=== PATIENT | male | born 1945 | race Hispanic/Latino ===

== ENCOUNTER 2018-09-18 08:04 | Outpatient (CLI) | payer BC, MEDICARE ==
--- NOTE | 2018-09-18 09:08 | ULT ---
ABDOMINAL AORTIC ULTRASOUND: HISTORY: Abdominal aortic aneurysm screening. FINDINGS: Exam was somewhat limited because of gas. No evidence for an identifiable abdominal aortic aneurysm. The bifurcation region is unremarkable. Right and left iliac arteries show no evidence of aneurysm . IMPRESSION: Some atherosclerotic changes of the aorta, evidence for aortic vascular disease. No evidence for an aneurysm. POS: [facility]
== END 2018-09-18 08:05 | disposition home or self-care (01) ==
LOC: BICULT 08:04
PROVIDERS: ATTEND Family Medicine
DX: Z13.6 Encounter for screening for cardiovascular disorders (principal); Z00.00 Encounter for general adult medical examination without abnormal findings; I70.0 Atherosclerosis of aorta; I35.9 Nonrheumatic aortic valve disorder, unspecified
CPT/HCPCS: 76706

== ENCOUNTER 2022-12-18 07:45 | Emergency (ER) | payer OTHER, BC | END 2022-12-18 09:42 | disposition left against medical advice (07) | LOC: ERS 07:45 | DX: M54.9 Dorsalgia, unspecified (principal); Z87.891 Personal history of nicotine dependence; E11.9 Type 2 diabetes mellitus without complications; E78.00 Pure hypercholesterolemia, unspecified; Z79.84 Long term (current) use of oral hypoglycemic drugs; Z79.899 Other long term (current) drug therapy | CPT/HCPCS: 99283 ==

== ENCOUNTER 2025-02-17 07:45 | Outpatient (CLI) | payer BC, OTHER ==
[2025-02-17 09:24] LABS: #Basophils 0.05 10x3/uL (0.0-0.2); #Eosinophils 0.14 10x3/uL (0.0-0.7); #Monocytes 0.56 10x3/uL (0.11-0.59); #Neutrophils 3.75 10x3/uL (1.40-6.50); %Basophils 0.9 % (0.0-1.0); %Eosinophils 2.4 % (0.0-10.0); %Lymphocytes 22.7 % (21.0-51.0); %Monocytes 9.6 % (0.0-10.0); %Neutrophils 63.9 % (42.0-75.0); Hematocrit 46.6 % (42.0-52.0); Hemoglobin 15.7 g/dL (14.0-18.0); Mean Corpuscular Hemoglobin 31.0 pg (27.0-31.0); Mean Corpuscular Volume 91.9 fL (78.0-98.0); Platelet Count 172 10x3/uL (130-400); Red Blood Cell (RBC) Count 5.07 mill/uL (4.70-6.10); White Blood Cell (WBC) Count 5.86 10x3/uL (4.8-10.8)
[2025-02-17 09:42] LABS: Bacteria/HPF None Seen HPF (None Seen); Glucose, Urine (Dipstick) Normal (Negative); Leukocyte Negative Leu/uL (Negative); Protein, Urine (Dipstick) Negative (Neg-Trace); RBC/HPF 0-3 HPF (0-3); Specific Gravity, Urine 1.014 (1.002-1.036); WBC/HPF 0-3 HPF (0-3)
[2025-02-17 09:48] LABS: INR-International Normal Ratio 1.1; Prothrombin Time 13.8 sec (12.0-14.7)
[2025-02-17 09:57] LABS: Anion Gap 12 mmol/L (10-20); BUN (Urea Nitrogen) 16 mg/dL (8.4-25.7); Calc. Creatinine Clearance 0 mL/min (70-130); Calcium 8.9 mg/dL (7.8-10.44); Carbon Dioxide 24 mmol/L (23-31); Chloride 106 mmol/L (98-107); Glucose 95 mg/dL (83-110); Potassium 4.1 mmol/L (3.5-5.1); Sodium 138 mmol/L (136-145)
== END 2025-02-17 07:46 | disposition home or self-care (01) ==
LOC: LABBT 07:45
PROVIDERS: ATTEND Orthopaedic Surgery
DX: Z01.818 Encounter for other preprocedural examination (principal); M17.11 Unilateral primary osteoarthritis, right knee
CPT/HCPCS: 80048; 81001; 83036; 85025; 85610; 87081; 87086; 93005; 93010

== ENCOUNTER 2025-02-17 08:51 | Outpatient (CLI) | payer OTHER | END 2025-02-17 08:52 | disposition home or self-care (01) | LOC: CT 08:51 | PROVIDERS: ATTEND Orthopaedic Surgery | DX: Z01.818 Encounter for other preprocedural examination (principal); M17.11 Unilateral primary osteoarthritis, right knee ==

== ENCOUNTER 2025-02-24 05:51 | Observation (INO) | payer BC, OTHER ==
[2025-02-17 08:17] VITALS: BMI 28.0
[2025-02-24] MEDS ORDERED: PROPOFOL 20 ML ONE ×2 (06:28→08:01)
[2025-02-24] MEDS ORDERED: Lidocaine 1% PF 5 ML VIAL ONE (06:28)
[2025-02-24] MEDS ORDERED: Tranexamic Acid 1,000 MG/10 ML VIAL ONE (06:31)
[2025-02-24] MEDS ORDERED: Vancomycin HCl 1.5 GM VIAL ONE (06:31)
[2025-02-24] MEDS ORDERED: Ropivacaine 0.5% HCl/PF (150 MG/30 ML VIAL) ONE (06:43)
[2025-02-24] MEDS ORDERED: CEFAZOLIN 2 GM VIAL ONE (06:52)
[2025-02-24] MEDS ORDERED: HYDROcodone/Acetaminophen 10/325 mg Tablet PO PRN (07:15)
[2025-02-24] MEDS ORDERED: Ondansetron PF 4 MG/2 ML Vial IVP PRN ×2 (07:15→09:17)
[2025-02-24] MEDS ORDERED: Ropivacaine 0.2% 550 ML 550 ML NERVE BLCK SCH (07:15)
[2025-02-24] MEDS ORDERED: Ondansetron PF 4 MG/2 ML Vial ONE (08:28)
[2025-02-24] MEDS ORDERED: PHENYLEPHRINE-NS 100 MCG/ML 10 ML SYRINGE ONE (08:33)
[2025-02-24] MEDS ORDERED: MET PO SCH (09:17)
[2025-02-24] MEDS ORDERED: diphenhydrAMINE 25 MG CAP PO PRN (09:17)
[2025-02-24] MEDS ORDERED: BETAMETHASONE PO SCH (09:17)
[2025-02-24] MEDS ORDERED: Acetaminophen 325 MG TAB PO PRN (09:17)
[2025-02-24] MEDS ORDERED: INDOMETHACIN PO SCH (09:17)
[2025-02-24] MEDS: Multivitamin W/ Minerals 1 TAB PO SCH (12:05)
[2025-02-24] MEDS: metFORMIN 500 MG TAB PO SCH (12:05)
[2025-02-24] MEDS: Ferrous Gluconate 324 MG TAB PO SCH (12:05)
[2025-02-24] MEDS: Aspirin 81 mg Enteric Coated Tablet PO SCH (12:05)
[2025-02-24] MEDS: Ketorolac Tromethamine 30 MG (1 mL) VIAL IVP SCH (12:06)
[2025-02-24] MEDS: Senokot S 8.6-50 MG TAB PO SCH (12:06)
[2025-02-24] MEDS: Nitroglycerin 0.4 MG TAB (25 Tab Bottle) SL SCH (12:16)
[2025-02-24] MEDS: FLU (Fluad Triv) 25-26 (65UP)PF 45 MCG/0.5 ML Syringe IM ONE (14:43)
[2025-02-24] MEDS: Simvastatin 10 MG TAB PO SCH (19:50)
[2025-02-25 06:40] LABS: Hematocrit 38.7 % (42.0-52.0); Hemoglobin 12.9 g/dL (14.0-18.0); Mean Corpuscular Hemoglobin 31.5 pg (27.0-31.0); Mean Corpuscular Volume 94.6 fL (78.0-98.0); Platelet Count 138 10x3/uL (130-400); Red Blood Cell (RBC) Count 4.09 mill/uL (4.70-6.10); White Blood Cell (WBC) Count 8.40 10x3/uL (4.8-10.8)
[2025-02-25 08:03] VITALS: TEMP 97.9
[2025-02-25] MEDS: HYDROcodone/Acetaminophen 10/325 mg Tablet PO PRN (08:38)
[2025-02-25] MEDS ORDERED: BETAMETHASONE PO SCH (09:00)
[2025-02-25] MEDS ORDERED: INDOMETHACIN PO SCH (09:00)
[2025-02-25] MEDS ORDERED: [UNRECOGNIZED DRUG - OTHER] PO SCH (09:00)
[2025-02-25 12:21] VITALS: BP 102/61
== END 2025-02-25 13:45 | disposition home or self-care (01) ==
LOC: SDC 05:51 → SURG A 10:21 → SDC 15:04
PROVIDERS: ADMIT Orthopaedic Surgery; ATTEND Orthopaedic Surgery
PROC: 0SRC0JZ Replacement of Right Knee Joint with Synthetic Substitute, Open Approach (ICD-10-PCS; principal; 2025-02-24)
PROC: 3E0T3BZ Introduction of Anesthetic Agent into Peripheral Nerves and Plexi, Percutaneous Approach (ICD-10-PCS; 2025-02-24)
DX: M17.11 Unilateral primary osteoarthritis, right knee (principal); I10 Essential (primary) hypertension; I25.10 Atherosclerotic heart disease of native coronary artery without angina pectoris; E11.9 Type 2 diabetes mellitus without complications; E78.5 Hyperlipidemia, unspecified; N40.0 Benign prostatic hyperplasia without lower urinary tract symptoms; Z87.891 Personal history of nicotine dependence
CPT/HCPCS: 0055T; 27447; 64448; 36416; 85027; 90653; A4306; C1713; C1776; C1889; J0169; J0665; J1100; J1885; J2405; J2704; J2795; J3010